=== PATIENT | female | born 2000 | race African-American/Black ===

== ENCOUNTER 2020-11-11 23:11 | Emergency (ER) | payer OTHER ==
[~2020-11-11] VITALS: Ht 180.3 cm; Wt 123.6 kg
[2020-11-12 00:17] VITALS: BP 137/68
--- NOTE | 2020-11-12 00:19 | PHYS DOC ---
Adult General Chief Complaint Chief Complaint: VAGINAL PROBLEM HPI HPI Patient is a 20-year-old female who presents to the emergency department with vaginal bleeding, during her menstrual cycle which she feels is a day longer than it should be to ensure that she is not . States that her menstrual cycle usually last for 5 days but she is 6 days into it. Denies any other symptoms outside of vaginal bleeding. States she came to the emergency department to ensure that she was not . States she also came because her daughter has had a cough for 4 days. Denies any headache, chest pain, shortness of breath, abdominal pain, nausea, vomiting, dysuria, blood in the stool or diarrhea. Denies any Covid/flu symptoms. States she is eating and drinking normally for her. States she is otherwise making urine and stool normally for her. States she is and has no history of STIs other vaginal discharge, vaginal pain, dyspareunia. States she does not feel she needs to be tested for STIs. Review of Systems Review of Systems Constitutional: Denies fever or chills [] Eyes: Denies change in visual acuity, redness, or eye pain [] HENT: Denies nasal congestion or sore throat [] Respiratory: Denies cough or shortness of breath [] Cardiovascular: No additional information not addressed in HPI [] GI: Denies abdominal pain, nausea, vomiting, bloody stools or diarrhea [] : Denies dysuria or hematuria [] Musculoskeletal: Denies back pain or joint pain [] Integument: Denies rash or skin lesions [] Neurologic: Denies headache, focal weakness or sensory changes [] Endocrine: Denies polyuria or polydipsia [] All other systems were reviewed and found to be within normal limits, except as documented in this note. Allergies Allergies Allergies Coded Allergies Type Severity Reaction Last Updated Verified No Known Drug Allergies 11/12/20 No Physical Exam Physical Exam Constitutional: Well developed, well nourished, no acute distress, non-toxic appearance. [] HENT: Normocephalic, atraumatic, bilateral external ears normal, oropharynx moist, no oral exudates, nose normal. [] Eyes: conjunctiva normal, no discharge. [] Neck: Normal range of motion, no tenderness, supple, no stridor. [] Cardiovascular:Heart rate regular rhythm, no murmur [] Lungs & Thorax: Bilateral breath sounds clear to auscultation [] Abdomen: soft, no tenderness, no masses, no pulsatile masses. [] Skin: Warm, dry, no erythema, no rash. [] Back: no CVA tenderness. [] Extremities: No tenderness, no cyanosis, no clubbing, ROM intact, no edema. [] Neurologic: Alert and oriented X 3, normal motor function, normal sensory function, no focal deficits noted. [] Psychologic: Affect normal, judgement normal, mood normal. [] Current Patient Data Lab Results Laboratory Tests Test 11/11/20 23:52 POC Urine HCG, Qualitative hcg negative (Negative) EKG EKG [] Radiology/Procedures Radiology/Procedures [] Heart Score C/O Chest Pain: No Risk Factors: Risk Factors: DM, Current or recent (<one month) smoker, HTN, HLP, family history of CAD, obesity. Risk Scores: Risk Factors: DM, Current or recent (<one month) smoker, HTN, HLP, family history of CAD, obesity. Course & Med Decision Making Course & Med Decision Making Patient is a 20-year-old female who presents with vaginal bleeding/extended menstrual cycle concern for Vital signs not concerning. Physical exam noted above. negative. Patient otherwise asymptomatic. Patient and with no concerns for STIs and declines need for testing. Discussed all findings with patient and advised that it is likely that her. May just be a little longer than usual at this time and she is not and the fact that she is not having any pain or any other symptoms is a likely diagnosis. Discussed however that there could be something else going on and she should follow-up with her primary care physician or [facility] first thing Friday morning to discuss ED visit. Gave strict return precautions to the emergency department. Family grateful, verbalized understanding and agreed with plan of discharge. [] Dragon Disclaimer Dragon Disclaimer This electronic medical record was generated, in whole or in part, using a voice recognition dictation system. Departure Departure: Impression: Primary Impression: Vaginal bleeding Disposition: HOME / SELF CARE / HOMELESS Condition: GOOD Referrals: PCP,UNKNOWN (PCP) ANU MOSER MD Patient Instructions: Uterine Bleeding, Dysfunctional Additional Instructions: Thank you for coming into the emergency department tonight and allowing us to take care of you. Your test was negative today. As discussed this could be just an extended menstrual cycle. However it would be marie to follow- up with your [facility] or primary care physician first thing Friday morning to discuss your ED visit. Please come back to the emergency department immediately with any new or concerning symptoms as discussed. MOUNIKA SMITH MD Nov 12, 2020 00:19
== END 2020-11-12 00:56 | disposition home or self-care (01) ==
LOC: ER 23:11
DX: N93.8 Other specified abnormal uterine and vaginal bleeding (principal)
CPT/HCPCS: 81025; 99282